=== PATIENT | male | born 1980 | race Hispanic/Latino ===

== ENCOUNTER 2023-08-21 21:38 | Inpatient (IN) | payer SELFPAY ==
[~2023-08-21 21:38] MED LIST: Iopamidol-370 76% 500 ML MDV (1 ML CHARGE) ONE
[2023-08-21] MEDS ORDERED: Ipratropium/Albuterol 3 ML NEB ONE (22:13)
[2023-08-21] MEDS ORDERED: methylPREDNISolone Sod Succ/PF 125 MG/2 ML VIAL ONE (22:20)
[2023-08-21 22:32] LABS: #Eosinphils 0.1 thou/uL (0.0-0.7); #Monocytes 0.7 thou/uL (0.11-0.59); #Neutrophils 6.7 thou/uL (1.40-6.50); %Basophils 0.3 % (0.0-1.0); %Eosinophils 0.9 % (0.0-10.0); %Lymphocytes 18.8 % (21.0-51.0); %Monocytes 7.7 % (0.0-10.0); Hematocrit 42.2 % (42.0-52.0); Mean Corpuscular HGB CONC 33.2 g/dL (32.0-36.0); Mean Corpuscular Hemoglobin 29.7 pg (27.0-31.0); Mean Corpuscular Volume 89.4 fl (78.0-98.0); Mean Platelet Volume 12.2 fL (7.4-10.4); Platelet Count 229 10x3/uL (130-400); RBC Distribution Width 13.2 % (11.5-14.5); Red Blood Cell (RBC) Count 4.72 mill/uL (4.70-6.10); White Blood Cell (WBC) Count 9.3 10x3/uL (4.8-10.8)
[2023-08-21 22:57] LABS: Troponin I 0.062 ng/mL (< 0.028)
[2023-08-21 22:59] LABS: ALT (SGPT) 76 U/L (8-55); AST (SGOT) 42 U/L (5-34); Albumin 3.7 g/dL (3.5-5.0); Alkaline Phosphatase 119 U/L (40-110); Anion Gap 16 mmol/L (10-20); BUN (Urea Nitrogen) 14 mg/dL (8.9-20.6); Bilirubin, Total 0.9 mg/dL (0.2-1.2); Calc. Creatinine Clearance 0 mL/min (70-130); Calcium 8.8 mg/dL (7.8-10.44); Carbon Dioxide 18 mmol/L (22-29); Chloride 104 mmol/L (98-107); Estimated GFR 80; Globulin 3.2 g/dL (2.4-3.5); Glucose 337 mg/dL (70-105); Lipase 15 U/L (8-78); Potassium 3.6 mmol/L (3.5-5.1); Protein, Total 6.9 g/dL (6.0-8.3); Sodium 134 mmol/L (136-145)
[2023-08-21] MEDS ORDERED: Aspirin 325 MG TAB ONE (23:27)
[2023-08-21] MEDS ORDERED: cefTRIAXone (ROCEPHIN) 2 GM VIAL ONE (23:27)
[2023-08-21] MEDS ORDERED: Magnesium 2 GM/50 ML BAG (IN WATER) ONE (23:27)
[2023-08-21] MEDS ORDERED: Furosemide 40 MG (4 mL) VIAL ONE (23:27)
[2023-08-21] MEDS ORDERED: Azithromycin 500 MG VIAL ONE (23:28)
[2023-08-21] MEDS ORDERED: Sodium Chloride 0.9% 200 ML ONE (23:28)
[2023-08-21 23:43] LABS: Actual Bicarbonate (HCO3v) 20.8 mEq/L (22-28); Base Excess -1.1 mEq/L (-2.0 to +3.0); Calcium, Ionized (venous) 1.06 mmol/L (1.16-1.32); Chloride (VBG) 104 mmol/L (98-106); Hematocrit-VBG 42 % (42.0-52.0); Hemoglobin (Hb) 14.3 g/dL (13.2-17.3); Potassium (VBG) 3.74 mmol/L (3.70-5.30); Sodium 135 mmol/L (133-146); pH (venous) 7.495 (7.32-7.43)
[2023-08-21] MEDS ORDERED: Aspirin Chewable 81 MG TAB ONE (23:54)
[2023-08-22 00:33] LABS: Bacteria/HPF None Seen HPF (None Seen); Bilirubin Negative (Negative); Blood, Urine Negative (Negative); CAUTI Indications for Culture Dysuria,urgency,freq; Clarity Clear (Clear); Glucose, Urine (Dipstick) Greater than 1000 mg/dL (Negative); Ketone, Urine Negative (Negative); Leukocyte 75 Leu/uL (Negative); Nitrite Negative (Negative); Protein, Urine (Dipstick) 50 mg/dL (Neg-Trace); Specific Gravity, Urine 1.018 (1.002-1.036); Squamous Epithelial None Seen HPF (0-3); Urobilinogen Normal mg/dL (Less than 2); pH, Urine 5.5 (5.0-9.0)
[2023-08-22 00:34] LABS: Urine Culture Reflex No No
[2023-08-22 01:30] LABS: SARS-CoV-2 NAA Rapid Test Not Detected (NotDetected)
[2023-08-22 02:35] LABS: Troponin I 0.036 ng/mL (< 0.028)
[2023-08-22] MEDS ORDERED: Dextrose 50% Abboject 50 ML SYRINGE SLOW IVP PRN (04:07)
[2023-08-22] MEDS ORDERED: Dextrose 5% in Water 1,000 ML IV PRN (04:07)
[2023-08-22] MEDS ORDERED: Glucagon 1 MG/ML KIT IM PRN (04:07)
[2023-08-22] MEDS: HumaLOG 300 UNITS/3 ML VIAL SC PRN ×2 (04:44→20:34)
[2023-08-22 05:29] LABS: Troponin I 0.046 ng/mL (< 0.028)
[2023-08-22 07:54] LABS: Hemoglobin A1c 13.7 % (4.0-6.0)
[2023-08-22] MEDS: Carvedilol 3.125 MG TAB PO SCH (08:50)
[2023-08-22] MEDS: Lisinopril 2.5 MG TAB PO SCH (08:51)
[2023-08-22] MEDS: Enoxaparin 40 MG (0.4 mL) SYRINGE SC SCH (08:53)
[2023-08-22] MEDS: Spironolactone 25 MG TAB PO SCH (09:43)
[2023-08-22] MEDS: Aspirin 81 mg Enteric Coated Tablet PO SCH (09:44)
[2023-08-22] MEDS: Empagliflozin 10 MG TAB PO SCH (09:45)
[2023-08-22] MEDS ORDERED: Iopamidol 370 76% 100 ML VIAL ONE (09:53)
[2023-08-22] MEDS ORDERED: Communication Order-Pharmacy FS SCH (12:15)
[2023-08-22] MEDS ORDERED: fentaNYL 50 mcg/mL 1 mL Vial ONE (13:59)
[2023-08-22] MEDS ORDERED: Midazolam HCl 2 mg/2 ml Vial ONE (13:59)
[2023-08-22] MEDS: Furosemide 40 MG (4 mL) VIAL SLOW IVP SCH ×2 (17:48→17:54)
[2023-08-22] MEDS: Atorvastatin Calcium 20 MG TAB PO SCH (20:19)
[2023-08-23 05:07] LABS: #Neutrophils 8.2 thou/uL (1.40-6.50); %Basophils 0.2 % (0.0-1.0); %Lymphocytes 14.6 % (21.0-51.0); %Neutrophils 75.8 % (42.0-75.0); Hematocrit 39.5 % (42.0-52.0); Hemoglobin 12.7 g/dL (14.0-18.0); Mean Corpuscular HGB CONC 32.2 g/dL (32.0-36.0); Mean Corpuscular Hemoglobin 29.3 pg (27.0-31.0); Mean Corpuscular Volume 91.2 fl (78.0-98.0); Mean Platelet Volume 12.6 fL (7.4-10.4); Platelet Count 246 10x3/uL (130-400); RBC Distribution Width 13.5 % (11.5-14.5); Red Blood Cell (RBC) Count 4.33 mill/uL (4.70-6.10); White Blood Cell (WBC) Count 10.8 10x3/uL (4.8-10.8)
[2023-08-23 05:36] LABS: ALT (SGPT) 58 U/L (8-55); AST (SGOT) 24 U/L (5-34); Albumin 3.4 g/dL (3.5-5.0); Alkaline Phosphatase 122 U/L (40-110); Anion Gap 14 mmol/L (10-20); BUN (Urea Nitrogen) 32 mg/dL (8.9-20.6); Bilirubin, Total 0.4 mg/dL (0.2-1.2); Calc. Creatinine Clearance 137 mL/min (70-130); Calcium 8.5 mg/dL (7.8-10.44); Carbon Dioxide 22 mmol/L (22-29); Chloride 102 mmol/L (98-107); Estimated GFR 62; Globulin 3.2 g/dL (2.4-3.5); Magnesium 2.5 mg/dL (1.6-2.6); Potassium 4.4 mmol/L (3.5-5.1); Protein, Total 6.6 g/dL (6.0-8.3); Sodium 134 mmol/L (136-145)
[2023-08-23 05:42] LABS: Critical Call Chemistry NUR.CL11 @0541; Glucose 434 mg/dL (70-105)
[2023-08-23] MEDS: Carvedilol 6.25 MG TAB PO SCH (08:40)
[2023-08-23] MEDS: Lisinopril 2.5 MG TAB PO SCH (08:42)
[2023-08-23] MEDS ORDERED: Furosemide 40 MG (4 mL) VIAL SLOW IVP SCH (09:00)
[2023-08-23] MEDS: Insulin Glargine 30 UNITS/0.3 ML VIAL SC SCH ×2 (13:17→21:24)
[2023-08-24 05:47] LABS: Iron Binding Capacity, Total 290 mcg/dL (261-462)
[2023-08-24 06:12] LABS: Ferritin 94.78 ng/mL (22-322); Thyroid Stimulating Hormone 2.9721 uIU/mL (0.35-4.94)
[2023-08-24 06:13] LABS: HIV (1/2) Antibody/Antigen Non-Reactive (NonReactive); HIV 1/2 INDEX 0.08 S/CO (<1.00)
[2023-08-24 07:30] LABS: Acetaminophen Less than 10 mcg/mL (10.0-30.0); Alcohol Less than 10.0 mg/dL (Less than 10); Anion Gap 14 mmol/L (10-20); BUN (Urea Nitrogen) 36 mg/dL (8.9-20.6); Calc. Creatinine Clearance 162 mL/min (70-130); Calcium 8.1 mg/dL (7.8-10.44); Carbon Dioxide 19 mmol/L (22-29); Chloride 107 mmol/L (98-107); Estimated GFR 78; Glucose 187 mg/dL (70-105); Potassium 3.8 mmol/L (3.5-5.1); Salicylate Less than 8.0 mg/dL (15.0-30.0); Sodium 136 mmol/L (136-145)
[2023-08-24] MEDS: Insulin Glargine 30 UNITS/0.3 ML VIAL SC SCH (08:18)
[2023-08-24] MEDS: Carvedilol 6.25 MG TAB PO SCH ×2 (08:59→21:34)
[2023-08-24] MEDS: Lisinopril 2.5 MG TAB PO SCH (08:59)
[2023-08-24 11:46] LABS: Amphetamine Not Detected (NotDetected); Barbiturates Screen Not Detected (NotDetected); Benzodiazepine Screen Not Detected (NotDetected); Cocaine Metabolite Screen Not Detected (NotDetected); Methadone Not Detected (NotDetected); Methamphetamine Not Detected (NotDetected); Opiate Screen Not Detected (NotDetected); Oxycodone Screen Not Detected (NotDetected); Phencyclidine (PCP) Not Detected (NotDetected); THC/Cannabinoid Screen Detected (NotDetected); Tricyclic Screen Not Detected (NotDetected)
[2023-08-24] MEDS: Lisinopril 5 MG TAB PO SCH (21:34)
[2023-08-25 04:34] LABS: #Eosinphils 0.1 thou/uL (0.0-0.7); #Monocytes 0.6 thou/uL (0.11-0.59); #Neutrophils 5.3 thou/uL (1.40-6.50); %Basophils 0.4 % (0.0-1.0); %Eosinophils 0.6 % (0.0-10.0); %Lymphocytes 26.5 % (21.0-51.0); %Monocytes 7.8 % (0.0-10.0); Hematocrit 43.6 % (42.0-52.0); Hemoglobin 13.7 g/dL (14.0-18.0); Mean Corpuscular HGB CONC 31.4 g/dL (32.0-36.0); Mean Corpuscular Volume 92.2 fl (78.0-98.0); Mean Platelet Volume 12.6 fL (7.4-10.4); Platelet Count 250 10x3/uL (130-400); RBC Distribution Width 13.3 % (11.5-14.5); Red Blood Cell (RBC) Count 4.73 mill/uL (4.70-6.10); White Blood Cell (WBC) Count 8.2 10x3/uL (4.8-10.8)
[2023-08-25 05:01] LABS: ALT (SGPT) 75 U/L (8-55); AST (SGOT) 45 U/L (5-34); Albumin 3.4 g/dL (3.5-5.0); Alkaline Phosphatase 96 U/L (40-110); Anion Gap 12 mmol/L (10-20); BUN (Urea Nitrogen) 34 mg/dL (8.9-20.6); Bilirubin, Total 0.7 mg/dL (0.2-1.2); Calc. Creatinine Clearance 183 mL/min (70-130); Calcium 8.5 mg/dL (7.8-10.44); Carbon Dioxide 23 mmol/L (22-29); Chloride 108 mmol/L (98-107); Estimated GFR 90; Glucose 158 mg/dL (70-105); Potassium 4.2 mmol/L (3.5-5.1); Protein, Total 6.4 g/dL (6.0-8.3); Sodium 139 mmol/L (136-145)
[2023-08-25] MEDS: Carvedilol 25 MG TAB PO SCH (09:10)
[2023-08-25] MEDS: Lisinopril 10 MG TAB PO SCH (09:10)
[2023-08-25] MEDS: Cefdinir 300 MG CAP PO SCH (22:02)
[2023-08-26 06:56] LABS: #Eosinphils 0.1 thou/uL (0.0-0.7); #Monocytes 0.6 thou/uL (0.11-0.59); #Neutrophils 4.6 thou/uL (1.40-6.50); %Basophils 0.3 % (0.0-1.0); %Eosinophils 1.3 % (0.0-10.0); %Lymphocytes 24.1 % (21.0-51.0); %Monocytes 8.5 % (0.0-10.0); %Neutrophils 65.2 % (42.0-75.0); Hematocrit 41.7 % (42.0-52.0); Hemoglobin 13.5 g/dL (14.0-18.0); Mean Corpuscular HGB CONC 32.4 g/dL (32.0-36.0); Mean Corpuscular Hemoglobin 29.5 pg (27.0-31.0); Mean Platelet Volume 11.7 fL (7.4-10.4); Platelet Count 218 10x3/uL (130-400); RBC Distribution Width 13.3 % (11.5-14.5); Red Blood Cell (RBC) Count 4.58 mill/uL (4.70-6.10); White Blood Cell (WBC) Count 7.1 10x3/uL (4.8-10.8)
[2023-08-26 07:45] LABS: Anion Gap 12 mmol/L (10-20); BUN (Urea Nitrogen) 32 mg/dL (8.9-20.6); Calc. Creatinine Clearance 221 mL/min (70-130); Carbon Dioxide 20 mmol/L (22-29); Chloride 110 mmol/L (98-107); Estimated GFR 110; Glucose 149 mg/dL (70-105); Potassium 4.2 mmol/L (3.5-5.1); Sodium 138 mmol/L (136-145)
[2023-08-26] MEDS: metFORMIN 500 MG TAB PO SCH (09:29)
[2023-08-26] MEDS ORDERED: Iopamidol-370 76% 500 ML MDV (1 ML CHARGE) ONE (11:41)
[2023-08-26 13:23] LABS: Syphilis Antibody Nonreactive (Nonreactive); Syphilis Antibody Index 0.05 S/CO (<1.00 Non-Reactive)
[2023-08-26 16:15] LABS: HIV-1 Quantitative, RNA PCR <20 copies/mL (.)
[2023-08-26] MEDS ORDERED: Carvedilol 6.25 MG TAB PO SCH (17:00)
[2023-08-26] MEDS: Carvedilol 3.125 MG TAB PO SCH (17:56)
[2023-08-26 19:16] LABS: Amphetamine Not Detected (NotDetected); Barbiturates Screen Not Detected (NotDetected); Benzodiazepine Screen Not Detected (NotDetected); Cocaine Metabolite Screen Not Detected (NotDetected); Methadone Not Detected (NotDetected); Methamphetamine Not Detected (NotDetected); Opiate Screen Not Detected (NotDetected); Oxycodone Screen Not Detected (NotDetected); Phencyclidine (PCP) Not Detected (NotDetected); THC/Cannabinoid Screen Detected (NotDetected); Tricyclic Screen Not Detected (NotDetected)
[2023-08-26] MEDS: Atorvastatin Calcium 40 MG TAB PO SCH (23:33)
[2023-08-27] MEDS: Acetaminophen 325 MG TAB PO PRN (01:51)
[2023-08-27] MEDS: Lisinopril 2.5 MG TAB PO SCH (09:32)
[2023-08-27] MEDS: Clopidogrel Bisulfate 75 MG TAB PO SCH (09:32)
[2023-08-27 17:45] LABS: #Eosinphils 0.1 thou/uL (0.0-0.7); #Monocytes 0.9 thou/uL (0.11-0.59); #Neutrophils 6.3 thou/uL (1.40-6.50); %Basophils 0.3 % (0.0-1.0); %Eosinophils 0.9 % (0.0-10.0); %Lymphocytes 17.7 % (21.0-51.0); %Monocytes 10.3 % (0.0-10.0); %Neutrophils 70.2 % (42.0-75.0); Hematocrit 43.2 % (42.0-52.0); Hemoglobin 13.9 g/dL (14.0-18.0); Mean Corpuscular HGB CONC 32.2 g/dL (32.0-36.0); Mean Corpuscular Hemoglobin 29.6 pg (27.0-31.0); Mean Corpuscular Volume 91.9 fl (78.0-98.0); Mean Platelet Volume 12.7 fL (7.4-10.4); Platelet Count 241 10x3/uL (130-400); RBC Distribution Width 13.5 % (11.5-14.5)
[2023-08-27 18:10] LABS: Cardiac Risk 7.3 (Less than 4.5)
[2023-08-27 18:12] LABS: Anion Gap 12 mmol/L (10-20); BUN (Urea Nitrogen) 28 mg/dL (8.9-20.6); Calc. Creatinine Clearance 131 mL/min (70-130); Calcium 8.2 mg/dL (7.8-10.44); Carbon Dioxide 21 mmol/L (22-29); Chloride 108 mmol/L (98-107); Estimated GFR 62; Glucose 232 mg/dL (70-105); Magnesium 2.2 mg/dL (1.6-2.6); Phosphorus 3.3 mg/dL (2.3-4.7); Potassium 4.2 mmol/L (3.5-5.1); Sodium 137 mmol/L (136-145)
[2023-08-28 04:24] LABS: #Eosinphils 0.1 thou/uL (0.0-0.7); #Monocytes 0.7 thou/uL (0.11-0.59); #Neutrophils 5.6 thou/uL (1.40-6.50); %Basophils 0.4 % (0.0-1.0); %Eosinophils 0.7 % (0.0-10.0); %Lymphocytes 20.7 % (21.0-51.0); %Monocytes 8.4 % (0.0-10.0); %Neutrophils 69.2 % (42.0-75.0); Hematocrit 40.9 % (42.0-52.0); Hemoglobin 13.3 g/dL (14.0-18.0); Mean Corpuscular HGB CONC 32.5 g/dL (32.0-36.0); Mean Corpuscular Hemoglobin 29.8 pg (27.0-31.0); Mean Corpuscular Volume 91.5 fl (78.0-98.0); Mean Platelet Volume 11.8 fL (7.4-10.4); Platelet Count 222 10x3/uL (130-400); RBC Distribution Width 13.4 % (11.5-14.5); Red Blood Cell (RBC) Count 4.47 mill/uL (4.70-6.10)
[2023-08-28 04:43] LABS: Anion Gap 12 mmol/L (10-20); BUN (Urea Nitrogen) 26 mg/dL (8.9-20.6); Calc. Creatinine Clearance 194 mL/min (70-130); Calcium 8.3 mg/dL (7.8-10.44); Carbon Dioxide 20 mmol/L (22-29); Chloride 109 mmol/L (98-107); Estimated GFR 101; Glucose 200 mg/dL (70-105); Magnesium 2.1 mg/dL (1.6-2.6); Potassium 4.1 mmol/L (3.5-5.1); Sodium 137 mmol/L (136-145)
[2023-08-29] MEDS: Empagliflozin 10 MG TAB PO SCH (08:50)
[2023-08-29 09:23] VITALS: BMI 42.1
[2023-08-29] MEDS: Lisinopril 2.5 MG TAB PO SCH (11:02)
[2023-08-29 16:18] VITALS: BP 119/89; TEMP 97.4
[2023-08-30] MEDS ORDERED: Spironolactone 25 MG TAB PO SCH (08:00)
[2023-08-30 13:15] LABS: ANA Symphony (Qualitative) Negative (Negative); ANA Symphony (Quantitative) Less than 0.1 Ratio (< 0.7 Negative); dsDNA IgG Antibody 0.7 IU/mL (<10 Negative)
== END 2023-08-29 19:00 | disposition home or self-care (01) | DRG 286 ==
LOC: ERS 21:38 → 2SE 08-22 02:09
PROVIDERS: ADMIT Internal Medicine; ATTEND Internal Medicine
PROC: 4A023N7 Measurement of Cardiac Sampling and Pressure, Left Heart, Percutaneous Approach (ICD-10-PCS; principal; 2023-08-22)
PROC: B2111ZZ Fluoroscopy of Multiple Coronary Arteries using Low Osmolar Contrast (ICD-10-PCS; 2023-08-22)
PROC: B2151ZZ Fluoroscopy of Left Heart using Low Osmolar Contrast (ICD-10-PCS; 2023-08-22)
DX: I50.23 Acute on chronic systolic (congestive) heart failure (principal); I63.9 Cerebral infarction, unspecified; J18.9 Pneumonia, unspecified organism; Z68.41 Body mass index [BMI] 40.0-44.9, adult; I42.8 Other cardiomyopathies; G81.94 Hemiplegia, unspecified affecting left nondominant side; F17.210 Nicotine dependence, cigarettes, uncomplicated; E66.01 Morbid (severe) obesity due to excess calories; E11.9 Type 2 diabetes mellitus without complications; Z11.52 Encounter for screening for COVID-19; Z79.84 Long term (current) use of oral hypoglycemic drugs; Z79.82 Long term (current) use of aspirin; Z79.899 Other long term (current) drug therapy; Z79.4 Long term (current) use of insulin
CPT/HCPCS: 36415; 36416; 70450; 70496; 70498; 70551; 71045; 71275; 80048; 80053; 80061; 80306; 80307; 81001; 82010; 82728; 82805; 83036; 83550; 83605; 83690; 83735; 83880; 84100; 84443; 84484; 85025; 86038; 86225; 86780; 87040; 87086; 87389; 87536; 87633; 93005; 93306; 93458; 93798; 94640; 96365; 96367; 96368; 96375; 97139; 99152; C1769; J0456; J0696; J1650; J1815; J1940; J2250; J2930; J3010; J3475; J3490; J7620; Q9967

== ENCOUNTER 2024-04-25 13:21 | Outpatient (CLI) | payer OTHER ==
[~2024-04-25 13:21] MED LIST changes: +Iopamidol 370 76% 100 ML VIAL ONE; -Iopamidol-370 76% 500 ML MDV (1 ML CHARGE) ONE
== END 2024-04-25 13:22 | disposition home or self-care (01) ==
LOC: BICCT 13:21
PROVIDERS: ATTEND Urology
DX: R31.29 Other microscopic hematuria (principal); K63.89 Other specified diseases of intestine
CPT/HCPCS: 74178

== ENCOUNTER 2024-08-01 07:03 | Day surgery (SDC) | payer SELFPAY ==
[2024-07-19 11:02] VITALS: BMI 39.3
[2024-08-01] MEDS ORDERED: LevoFLOXacin D5W 500 mg (100 mL) BAG ONE (08:13)
[2024-08-01] MEDS ORDERED: Lidocaine 1% MPF 2 ML VIAL ONE (08:13)
[2024-08-01] MEDS ORDERED: Iopamidol 30 ML ONE (08:40)
[2024-08-01] MEDS ORDERED: fentaNYL PF 100 MCG/2 ML SYRINGE ONE ×3 (08:41→10:17)
[2024-08-01 08:42] LABS: INR-International Normal Ratio 1.1; PTT 34.3 sec (22.9-36.1); Prothrombin Time 13.8 sec (12.0-14.7)
[2024-08-01] MEDS ORDERED: Lidocaine 2% PF 5 ML VIAL ONE (08:42)
[2024-08-01] MEDS ORDERED: Midazolam HCl 2 mg/2 ml Vial ONE (08:42)
[2024-08-01] MEDS ORDERED: Rocuronium Bromide 10 MG/ML (10ML VIAL) ONE (08:42)
[2024-08-01] MEDS ORDERED: Sodium Chloride 0.9% 100 ML ONE (08:43)
[2024-08-01] MEDS ORDERED: cefTRIAXone (ROCEPHIN) 2 GM VIAL ONE (08:43)
[2024-08-01] MEDS ORDERED: Etomidate 40 MG (20 mL) VIAL ONE (08:44)
[2024-08-01] MEDS ORDERED: KETAMINE 100 MG/ML (5ML VIAL) ONE (08:44)
[2024-08-01] MEDS ORDERED: Dexamethasone 4 mg/ml Vial ONE (09:19)
[2024-08-01] MEDS ORDERED: Ondansetron PF 4 MG/2 ML Vial ONE (09:19)
[2024-08-01] MEDS ORDERED: SUGAMMADEX SODIUM 200 MG/2 ML VIAL ONE ×2 (09:22→09:26)
[2024-08-01] MEDS ORDERED: Oxybutynin 5 MG TAB ONE (10:17)
[2024-08-01] MEDS ORDERED: Phenazopyridine HCl 100 MG TAB ONE (10:17)
== END 2024-08-01 12:10 | disposition home or self-care (01) ==
LOC: SDC 07:03
PROVIDERS: ATTEND Urology
PROC: 0TBB8ZZ Excision of Bladder, Via Natural or Artificial Opening Endoscopic (ICD-10-PCS; principal; 2024-08-01)
PROC: 0TBB8ZX Excision of Bladder, Via Natural or Artificial Opening Endoscopic, Diagnostic (ICD-10-PCS; principal; 2024-08-01)
DX: C67.0 Malignant neoplasm of trigone of bladder (principal); N47.1 Phimosis; N30.81 Other cystitis with hematuria; I11.0 Hypertensive heart disease with heart failure; E11.9 Type 2 diabetes mellitus without complications; I50.9 Heart failure, unspecified; E66.01 Morbid (severe) obesity due to excess calories; N47.6 Balanoposthitis; F17.200 Nicotine dependence, unspecified, uncomplicated; J18.9 Pneumonia, unspecified organism; Z98.890 Other specified postprocedural states; Z68.39 Body mass index [BMI] 39.0-39.9, adult; F12.90 Cannabis use, unspecified, uncomplicated
CPT/HCPCS: 85610; 85730; 86850; 86900; 86901; 88305; A4333; C1726; J0696; J1100; J1956; J2250; J2405; Q9967

== ENCOUNTER 2024-08-06 23:48 | Emergency (ER) | payer OTHER, SELFPAY ==
[2024-08-07 00:30] LABS: #Basophils 0.04 10x3/uL (0.0-0.2); %Basophils 0.4 % (0.0-1.0); %Eosinophils 2.1 % (0.0-10.0); %Lymphocytes 22.7 % (21.0-51.0); %Monocytes 7.6 % (0.0-10.0); %Neutrophils 66.7 % (42.0-75.0); Hematocrit 45.8 % (42.0-52.0); Hemoglobin 14.9 g/dL (14.0-18.0); Mean Corpuscular HGB CONC 32.5 g/dL (32.0-36.0); Mean Corpuscular Hemoglobin 29.6 pg (27.0-31.0); Mean Corpuscular Volume 90.9 fL (78.0-98.0); Mean Platelet Volume 10.4 fL (7.4-10.4); Platelet Count 255 10x3/uL (130-400); RBC Distribution Width 13.6 % (11.5-14.5); Red Blood Cell (RBC) Count 5.04 mill/uL (4.70-6.10)
[2024-08-07] MEDS ORDERED: Morphine 4 MG/ML VIAL ONE (00:33)
[2024-08-07] MEDS ORDERED: Ondansetron PF 4 MG/2 ML Vial ONE (00:33)
[2024-08-07 00:47] LABS: ALT (SGPT) 16 U/L (8-55); AST (SGOT) 12 U/L (5-34); Albumin 3.9 g/dL (3.5-5.0); Alkaline Phosphatase 96 U/L (40-110); Anion Gap 13 mmol/L (10-20); BUN (Urea Nitrogen) 18 mg/dL (8.9-20.6); Bilirubin, Total 0.2 mg/dL (0.2-1.2); Calc. Creatinine Clearance 0 mL/min (70-130); Calcium 9.8 mg/dL (7.8-10.44); Carbon Dioxide 23 mmol/L (22-29); Chloride 108 mmol/L (98-107); Estimated GFR 104; Globulin 4.2 g/dL (2.4-3.5); Glucose 152 mg/dL (70-105); Lipase 17 U/L (8-78); Potassium 4.1 mmol/L (3.5-5.1); Protein, Total 8.1 g/dL (6.0-8.3); Sodium 140 mmol/L (136-145)
[2024-08-07 01:20] LABS: Bacteria/HPF None Seen HPF (None Seen); Bilirubin Negative (Negative); Blood, Urine 3+ (Negative); CAUTI Indications for Culture Acute Hematuria; Clarity Turbid (Clear); Glucose, Urine (Dipstick) Greater than 1000 mg/dL (Negative); Ketone, Urine Trace mg/dL (Negative); Leukocyte Negative Leu/uL (Negative); Nitrite Negative (Negative); Protein, Urine (Dipstick) 10 mg/dL (Neg-Trace); RBC/HPF Greater than 50 HPF (0-3); Specific Gravity, Urine 1.042 (1.002-1.036); Squamous Epithelial None Seen HPF (0-3); Urobilinogen Normal mg/dL (Less than 2); pH, Urine 5.5 (5.0-9.0)
[2024-08-07 01:22] LABS: Urine Culture Reflex No No
== END 2024-08-07 02:10 | disposition home or self-care (01) ==
LOC: ERS 23:48
DX: N99.820 Postprocedural hemorrhage of a genitourinary system organ or structure following a genitourinary system procedure (principal); N32.89 Other specified disorders of bladder; E11.9 Type 2 diabetes mellitus without complications; I50.9 Heart failure, unspecified; F17.210 Nicotine dependence, cigarettes, uncomplicated; Z79.84 Long term (current) use of oral hypoglycemic drugs; Z79.01 Long term (current) use of anticoagulants; Z79.02 Long term (current) use of antithrombotics/antiplatelets; Z79.899 Other long term (current) drug therapy
CPT/HCPCS: 51702; 51798; 80053; 81001; 83690; 85025; 96374; 96375; J2270; J2405